=== PATIENT | female | born 1990 | race Caucasian/White ===

== ENCOUNTER 2017-06-04 09:23 | Inpatient (IN) | payer OTHER ==
[~2017-06-04] VITALS: Ht 160 cm; Wt 64.5 kg
[2017-06-05] VITALS (61 sets, daily range): BP systolic 81–131; BP diastolic 47–76; PULSE 56–101; TEMP 97.9–100.3
[2017-06-05 01:25] LABS: BASO % 0.4 % (0.0-2.0); EOS # 0.3 (0.0-0.7); EOS % 2.8 % (0-4.0); GRAN # 6.3 (1.4-6.5); GRAN % 56.1 % (42.2-75.2); LYMPH # 3.5 (1.2-3.4); LYMPH % 30.9 % (20.0-51.0); MEAN CELL VOLUME 89 fl (80.0-100.0); MEAN CORPUSCULAR HGB CONC 36 g/dl (33.0-37.0); MEAN PLATELET VOLUME 9.9 fl (7.4-10.4); MONO % 8.8 % (1.7-9.3); PLATELET COUNT 218 K/mm3 (130-400); RED BLOOD COUNT 3.63 M/mm3 (4.10-5.30); REDCELL DISTRIBUTION WIDTH-CV 12.5 % (11.5-14.5)
[2017-06-05 01:37] LABS: HEMATOCRIT 32.4 % (37.0-47.0); HEMOGLOBIN 11.6 g/dl (12.5-16.0); MEAN CORPUSCULAR HEMOGLOBIN 32 pg (27.0-31.0)
[2017-06-05 01:45] LABS: ALBUMIN 3.9 gm/dL (3.5-5.0); BILIRUBIN,TOTAL 0.3 mg/dL (0.0-1.0); CALCIUM 9.1 mg/dL (8.4-10.2); CREATININE, serum 0.51 mg/dL (0.52-1.25); POTASSIUM 3.7 mmol/L (3.4-5.0); TOTAL PROTEIN 7.2 gm/dL (6.4-8.2)
[2017-06-05] MEDS ORDERED: VENTOLIN0.09 MG IH (02:09)
[2017-06-05] MEDS ORDERED: FLOVENT DI100 MCG/Ac IH (02:10)
[2017-06-05] MEDS ORDERED: SYNTHROID0.175 MG PO (02:12)
[2017-06-05 02:15] LABS: THYROID STIMULATING HORMONE 3.41 uIU/mL (0.465-4.680)
[2017-06-05] MEDS ORDERED: MOTRIN 800800 MG/TAB PO (17:36)
[2017-06-06 01:34] LABS: RPR (VDRL) Non-reactive (())
[2017-06-06 13:24] LABS: LUPUS ANTICOAGULANT PT 11.5 sec (())
[2017-06-10 19:13] LABS: BETA-2 GPI IGG AABS <9.4 U/mL (()); BETA-2 GPI IGM AABS <9.4 U/mL (())
== END 2017-06-05 21:50 | disposition home or self-care (01) | DRG 767 ==
LOC: LDR 06-05 00:30 → OB 06-05 08:15 → LDR 06-05 21:50
PROVIDERS: Obstetrics & Gynecology
PROC: 10E0XZZ Delivery of Products of Conception, External Approach (ICD-10-PCS; principal; 2017-06-05)
PROC: 10D17Z9 Manual Extraction of Products of Conception, Retained, Via Natural or Artificial Opening (ICD-10-PCS; 2017-06-05)
PROC: 3E033VJ Introduction of Other Hormone into Peripheral Vein, Percutaneous Approach (ICD-10-PCS; 2017-06-05)
DX: O36.4XX0 Maternal care for intrauterine death, not applicable or unspecified (principal); O69.89X0 Labor and delivery complicated by other cord complications, not applicable or unspecified; O73.0 Retained placenta without hemorrhage; Z3A.22 22 weeks gestation of pregnancy; Z37.1 Single stillbirth
CPT/HCPCS: J0690; J2405; J2550; J2795; J7120